=== PATIENT | male | born 1935 | race Caucasian/White ===

== ENCOUNTER 2016-09-09 14:39 | Emergency (ER) | payer OTHER, MEDICARE ==
[~2016-09-09] VITALS: Ht 180.3 cm; Wt 78.0 kg
[2016-09-09] MEDS ORDERED: NORVASC5 MG PO (14:42)
== END 2016-09-09 15:50 | disposition home or self-care (01) ==
LOC: ER 14:39
DX: S61.012A Laceration without foreign body of left thumb without damage to nail, initial encounter (principal); W45.8XXA Other foreign body or object entering through skin, initial encounter; Y93.89 Activity, other specified; Y92.89 Other specified places as the place of occurrence of the external cause; Y99.9 Unspecified external cause status